=== PATIENT | female | born 1985 | race Caucasian/White ===

== ENCOUNTER 2016-11-01 17:45 | Emergency (ER) | payer MEDICAID ==
[~2016-11-01] VITALS: Ht 157.5 cm; Wt 68.0 kg
[2016-11-01 18:01] VITALS: BP 111/69
[2016-11-01] MEDS ORDERED: PREN-15 PO (18:07)
== END 2016-11-01 23:30 | disposition left against medical advice (07) ==
LOC: ER 17:45
DX: O26.892 Other specified pregnancy related conditions, second trimester (principal); R10.30 Lower abdominal pain, unspecified; Z3A.16 16 weeks gestation of pregnancy; Z53.21 Procedure and treatment not carried out due to patient leaving prior to being seen by health care provider